=== PATIENT | male | born 1995 | race Two or more races ===

== ENCOUNTER 2018-04-19 21:34 | Emergency (ER) | payer OTHER ==
[~2018-04-19] VITALS: Ht 177.8 cm; Wt 59.0 kg
== END 2018-04-19 22:37 | disposition home or self-care (01) ==
LOC: ER 21:34
DX: S80.02XA Contusion of left knee, initial encounter (principal); X50.3XXA Overexertion from repetitive movements, initial encounter; Y93.89 Activity, other specified; Y92.89 Other specified places as the place of occurrence of the external cause; Y99.8 Other external cause status